=== PATIENT | male | born 1970 | race African-American/Black ===

== ENCOUNTER 2021-01-25 14:36 | Emergency (ER) | payer OTHER ==
[~2021-01-25] VITALS: Ht 198.1 cm; Wt 116.6 kg
[~2021-01-25 14:36] MED LIST: AMOXICILLIN 50500 MG PO; AUGMENTIN 875-1 EACH PO; FLONASE 0.05%50 MCG NASAL; IBUPROFEN 600600 M1 PO; MOBIC15 MG PO; NAPROSYN500 MG PO; NOHOMEMEDICATIONS; NORCO 5-325 TA1 EACH PO; PREDNISONE 20 M20 MG PO; TRAMADOL 50 MG50 MG PO; TYLENOL325 MG PO; ZYRTEC10 M5 PO
[2021-01-25 14:39] VITALS: BP 145/77
[2021-01-25] MEDS ORDERED: NORCO5 PO ×2 (15:49→15:58)
== END 2021-01-25 16:00 | disposition home or self-care (01) ==
LOC: ER 14:36
DX: S46.211A Strain of muscle, fascia and tendon of other parts of biceps, right arm, initial encounter (principal); F17.210 Nicotine dependence, cigarettes, uncomplicated; X58.XXXA Exposure to other specified factors, initial encounter; Y93.89 Activity, other specified; Y92.89 Other specified places as the place of occurrence of the external cause; Y99.8 Other external cause status